=== PATIENT | female | born 2000 | race Caucasian/White ===

== ENCOUNTER 2023-12-26 02:26 | Emergency (ER) | payer BC, SELFPAY ==
[2023-12-26 02:32] VITALS: BP 121/84; PULSE 62; RESP 16; TEMP 36.4; O2SAT 99
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
[2023-12-26 02:41] LABS: Basophils % 0.2 %; Eosinophils # 0.1 10^3/uL (0.0-0.8); Eosinophils % 0.9 %; Hematocrit 40.2 % (36-47); Lymphocytes # 3.8 10^3/uL (0.8-4.8); Mean Corpuscular HGB Conc 33.3 g/dL (30-55); Mean Corpuscular Volume 83.9 fl (85-98); Mean Platelet Volume 11.4 fL (7.4-10.4); Monocytes # 0.5 10^3/uL (0.2-0.9); Monocytes % 7.4 %; Neutrophils % 33.3 %; Nucleated Red Blood Cells % 0 %; Platelet Count 207 10^3/cmm (157-399); Red Blood Count 4.79 10^6/uL (3.85-5.65); Red Cell Distribution Width 13.2 % (12.1-15.1)
[2023-12-26 02:55] LABS: HCG, Serum Qual Negative (Negative)
[2023-12-26 02:59] LABS: Alanine Aminotransferase 21 U/L (0-33); Albumin Level 4.5 g/dL (3.5-5.2); Alcohol Level 132 mg/dL (0-10); Alkaline Phosphatase 154 U/L (35-105); Blood Urea Nitrogen 7 mg/dL (6-20); Calcium 9.5 mg/dL (8.5-10.5); Carbon Dioxide 22 mmol/L (22-29); Chloride 103 mmol/L (98-107); Globulin 3.3 g/dL (1.3-4.6); Glomerular Filtration Rate 105.6 mL/min (90-130); Glucose 91 mg/dL (65-115); Osmolality Calculated 286 mOsm/kg (285-295); Sodium 139 mmol/L (136-145); Total Bilirubin 0.3 mg/dL (0.15-1.2); Total Protein 7.8 g/dL (6.6-8.7)
[2023-12-26] MEDS: iohexol 350 mg/mL 500 mL Btl (per mL) IV (03:04)
[2023-12-26 03:06] LABS: Anion Gap 17.5 (5-19); Aspartate Amino Transferase 254 U/L (0-32); Potassium 3.5 mmol/L (3.5-5.1)
[2023-12-26 04:02] LABS: Add Urine Microscopic? NO; Charge for UA Resulting for Rev
[2023-12-26 04:30] LABS: Bilirubin Urine Neg (Negative); Blood Urine Neg (Negative); Glucose Urine UA Norm (Normal); Ketones Urine Negative (Negative); Leukocyte Esterase Urine Negative (Negative); Nitrate Urine Negative (Negative); Protein Urine Neg (Negative); Specific Gravity, Urine 1.007 (1.005-1.030); Urine Appearance Clear (CLEAR); Urine Color Yellow (Yellow); Urobilinogen Urine Norm (Negative); pH Urine 5 (5-7)
[2023-12-26 04:40] VITALS: BP 125/79; PULSE 64; RESP 18; O2SAT 98
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
== END 2023-12-26 04:34 | disposition home or self-care (01) ==
PROVIDERS: Emergency Provider Emergency Medicine
DX: S06.0XAA Concussion with loss of consciousness status unknown, initial encounter (principal); S00.33XA Contusion of nose, initial encounter; V57.5XXA Driver of pick-up truck or van injured in collision with fixed or stationary object in traffic accident, initial encounter
CPT/HCPCS: 36415; 70450; 71260; 72125; 74177; 80053; 80307; 81003; 84703; 85025; 86850; 86900; 99285; Q9967